=== PATIENT | female | born 1960 | race Caucasian/White ===

== ENCOUNTER 2019-12-16 15:45 | Observation (INO) ==
[2019-12-16 20:32] LABS: Basophils # 0.1 K/mcL (0.0-0.2); Basophils % 0.9 %; Eosinophils # 0.2 K/mcL (0.0-0.6); Eosinophils % 2.8 %; Hematocrit 42.1 % (35.3-44.9); Hemoglobin 13.9 g/dL (11.5-15.4); Immature Granulocytes % 0.3 % (0-4); Lymphocytes # 2.9 K/mcL (0.6-4.6); Lymphocytes % 36.7 %; Mean Corpuscular Hemoglobin 29.8 pg (28.0-33.3); Mean Corpuscular Volume 90.1 fL (83.0-100.0); Mean Platelet Volume 10.1 fL (9.4-12.4); Monocytes # 0.5 K/mcL (0.0-1.3); Monocytes % 6.2 %; Neutrophils # 4.2 K/mcL (1.6-8.9); Nucleated Red Blood Cells 0.3 /100 WBC (0); Platelet Count 211 K/mcL (140-400); Red Blood Count 4.67 M/mcL (3.82-4.97); Red Cell Distribution Width 13.9 % (11.5-14.5); Segmented Neutrophils % 53.1 %; White Blood Count 7.9 K/mcL (4.3-11.1)
[2019-12-16 20:34] LABS: Estimated Average Glucose 140 mg/dl
[2019-12-16 20:35] LABS: Prothrombin Time 11.7 Seconds (9.4-12.1)
[2019-12-16 20:51] LABS: Alanine Aminotransferase 20 Units/L (7-52); Albumin 4.4 g/dL (3.5-5.7); Albumin/Globulin Ratio 1.8 (1.1-2.2); Alkaline Phosphatase 74 Units/L (34-104); Aspartate Amino Transferase 16 Units/L (13-39); BUN/Creatinine Ratio 22 (6-26); Bilirubin,Total 0.6 mg/dL (0.3-1.0); Blood Urea Nitrogen 15 mg/dL (6-20); Calcium 9.4 mg/dL (8.6-10.3); Carbon Dioxide 24 mEq/L (23-29); Chloride 105 mEq/L (98-107); Chol/HDL Ratio 4.7 (0-4.9); Cholesterol 208 mg/dL (< 200); Globulin 2.4 g/dL (2.4-3.5); Glucose 99 mg/dL (70-105); HDL Cholesterol 44 mg/dL (40-59); LDL Cholesterol,Calculated 126 mg/dL (0-99); Osmolality,Calculated 289 (280-300); Phosphorous 3.5 mg/dL (2.7-4.5); Potassium 3.5 mEq/L (3.5-5.1); Sodium 139 mEq/L (136-145); Total Protein 6.8 g/dL (6.4-8.9); Triglycerides 188 mg/dL (< 150); eGFR For African Americans > 60 (> 60); eGFR For Non-African Americans > 60 (> 60)
[2019-12-16] MEDS ORDERED: D5% in Water 1,000 ML IVC PRN (20:53)
[2019-12-16] MEDS ORDERED: Dextrose Gel 15 GM/37.5 ML TUBE PO PRN ×2 (20:53)
[2019-12-16] MEDS ORDERED: Naloxone 0.4 MG/ML INJ IVP PRN (20:53)
[2019-12-16] MEDS ORDERED: *HR* Dextrose 50 % in Water (Syg) 50 ML SYRINGE IVP PRN (20:53)
[2019-12-16] MEDS ORDERED: Aspirin Enteric Coated 325 MG Tablet PO ONE (20:58)
[2019-12-16 21:05] LABS: Thyroid Stimulating Hormone 2.087 mcIU/mL (0.340-5.600)
[2019-12-16 21:13] LABS: Troponin I < 0.03 ng/mL (< 0.04)
[2019-12-17 06:50] VITALS: BP 125/70
== END 2019-12-17 10:42 | disposition home or self-care (01) ==
LOC: 3BNU
PROVIDERS: ADMIT Family Medicine; ATTEND Family Medicine